=== PATIENT | female | born 1995 | race American Indian/Alaskan Native ===

== ENCOUNTER 2017-03-14 18:35 | Emergency (ER) | payer OTHER ==
[~2017-03-14] VITALS: Ht 167.6 cm; Wt 70.2 kg
[~2017-03-14 18:35] MED LIST: BACL10TA PO; HYDR-906 PO; IBUP-1542 PO
[2017-03-14 18:53] VITALS: Ht 167.6 cm; Wt 70.2 kg
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
[2017-03-14] MEDS ORDERED: IBUPROFEN 200 MG TAB PO ONE (21:00)
--- NOTE | 2017-03-14 21:20 | RADRPT ---
PROCEDURE: XR Chest. CLINICAL INDICATION: chest pain TECHNIQUE: Single frontal view of the chest was obtained COMPARISON: None FINDINGS: The heart and mediastinum are within normal limits. The lungs are clear. There is no pleural effusion or pneumothorax. RPTAT: AA IMPRESSION: No acute disease. .Danilo Langley MD, Date Time Electronically viewed and signed by .Danilo Langley MD, on 03/14/2017 21:20 .S/
[2017-03-14] MEDS ORDERED: IBUPROFEN 600 MG TAB PO ONE (22:30)
== END 2017-03-14 22:36 | disposition home or self-care (01) ==
LOC: FTE 18:35
DX: S29.9XXA Unspecified injury of thorax, initial encounter (principal); S19.9XXA Unspecified injury of neck, initial encounter; V49.40XA Driver injured in collision with unspecified motor vehicles in traffic accident, initial encounter
CPT/HCPCS: 71010; Z7502; Z7610

== ENCOUNTER 2018-07-14 18:41 | Emergency (ER) | payer OTHER ==
[~2018-07-14] VITALS: Ht 154.9 cm; Wt 67.4 kg
[~2018-07-14 18:41] MED LIST changes: +HYDR-4011 PO; -HYDR-906 PO
[2018-07-14 18:48] VITALS: BP 121/60; PULSE 94; RESP 18; Ht 154.9 cm; Wt 67.4 kg
[2018-07-14] MEDS ORDERED: ACET-141 PO (21:49)
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
== END 2018-07-14 22:02 | disposition home or self-care (01) ==
LOC: FTE 18:41
DX: R20.0 Anesthesia of skin (principal)
CPT/HCPCS: 99282

== ENCOUNTER 2018-12-23 07:40 | Emergency (ER) | payer OTHER ==
[~2018-12-23] VITALS: Ht 157.5 cm; Wt 61.2 kg
[~2018-12-23 07:40] MED LIST changes: +ACET-141 PO
[2018-12-23 07:45] VITALS: BP 121/68; Ht 157.5 cm; Wt 61.2 kg
[2018-12-23 10:17] VITALS: PULSE 77; RESP 18
== END 2018-12-23 10:18 | disposition home or self-care (01) ==
LOC: MERGE 07:40 → FTE 07:40
DX: O23.40 Unspecified infection of urinary tract in pregnancy, unspecified trimester (principal); O03.9 Complete or unspecified spontaneous abortion without complication; R10.2 Pelvic and perineal pain
CPT/HCPCS: 36415; 76801; 76817; 81001; 84702; 85025; 86900; 86901; Z7502